=== PATIENT | male | born 2000 | race Asian ===

== ENCOUNTER 2021-01-06 22:51 | Emergency (ER) | payer OTHER ==
[~2021-01-06] VITALS: Ht 174 cm; Wt 81.8 kg
[2021-01-06 22:58] VITALS: BP 134/82
== END 2021-01-07 00:55 | disposition left against medical advice (07) ==
LOC: EMS 22:57
DX: R51.9 Headache, unspecified (principal); Z53.21 Procedure and treatment not carried out due to patient leaving prior to being seen by health care provider